=== PATIENT | female | born 1950 | race Caucasian/White ===

== ENCOUNTER 2020-06-10 16:00 | Emergency (ER) | payer BC, OTHER | END 2020-06-10 16:47 | disposition home or self-care (01) | LOC: JVIRT 16:00 | DX: Z11.52 Encounter for screening for COVID-19 (principal) | CPT/HCPCS: G2012-GT ==

== ENCOUNTER 2020-06-13 10:25 | Emergency (ER) | payer OTHER | END 2020-06-13 11:55 | disposition home or self-care (01) | LOC: JVIRT 10:25 | DX: Z20.822 Contact with and (suspected) exposure to COVID-19 (principal) | CPT/HCPCS: C9803; G2012-GT; U0003 ==